=== PATIENT | male | born 1980 | race Caucasian/White ===

== ENCOUNTER 2024-03-09 20:25 | Emergency (ER) | payer MEDICAID ==
[~2024-03-09] VITALS: Ht 175.3 cm; Wt 104.3 kg
[2024-03-09 20:51] VITALS: BP 138/87; PULSE 94; RESP 16; TEMP 98.1; O2SAT 98
[2024-03-09 20:59] VITALS: BP 138/87; PULSE 94; RESP 16; TEMP 98.1; O2SAT 98
== END 2024-03-09 23:30 | disposition home or self-care (01) ==
LOC: MED 20:25
DX: F10.129 Alcohol abuse with intoxication, unspecified (principal); M54.50 Low back pain, unspecified; Z79.899 Other long term (current) drug therapy; Y90.9 Presence of alcohol in blood, level not specified
CPT/HCPCS: 99283